=== PATIENT | female | born 1990 | race Caucasian/White ===

== ENCOUNTER 2017-10-01 15:40 | Emergency (ER) | payer SELFPAY ==
[2017-10-01] MEDS ORDERED: Cephalexin 500 MG Cap PO ONE (15:41)
[2017-10-01] MEDS ORDERED: cefTRIAXone 1 GM Vial IM ONE (16:16)
--- NOTE | 2017-10-01 16:16 | EDM.PDOC ---
ED HPI GENERAL MEDICAL PROBLEM - General Chief Complaint: Bite:Animal, Insect Stated Complaint: bug bite Time Seen by Provider: 10/01/17 16:08 Source of Information: Reports: Patient History Limitations: Reports: No Limitations Left Shoulder Pain Score (Numeric/FACES): 8 - Related Data Allergies Allergy/AdvReac Type Severity Reaction Status Date / Time No Known Allergies Allergy Verified 10/01/17 15:42 Home Meds: Home Meds . [No Known Home Meds] 10/01/17 [History] Past Medical History - Past Health History Medical/Surgical History: Denies Medical/Surgical History Social & Family History - Tobacco Use Smoking Status *Q: Current Some Day Smoker Years of Tobacco use: 2 Packs/Tins Daily: 0.2 ED ROS GENERAL - Review of Systems Review Of Systems: See Below Constitutional: Reports: Fever. Denies: Chills HEENT: Reports: No Symptoms Respiratory: Reports: No Symptoms Cardiovascular: Reports: No Symptoms Skin: Reports: Wound (left anterior shoulder ) ED EXAM, ANIMAL BITE - Physical Exam Exam: See Below Exam Limited By: No Limitations General Appearance: Alert, WD/WN, Mild Distress Head: Atraumatic, Normocephalic Neck: Normal Inspection, Supple, Non-Tender Respiratory/Chest: No Respiratory Distress, Lungs Clear Cardiovascular: Regular Rate, Rhythm Skin Exam: Normal Color, Warm/Dry, Other (has area on her anterior left shoulder that is 7 cm horizontal by 6 cm that is red, swollen, warm to touch and swollen. Does have area in the center that is coming to a head but no drainage noted from it. It is warm and tender to touch. Lymph nodes distally are enlarged and tender to palpation.) Course - Vital Signs Last Recorded V/S: Last Vital Signs Temp 96.7 F 10/01/17 15:42 Pulse 100 10/01/17 15:42 Resp 20 10/01/17 15:42 BP 135/80 10/01/17 15:42 Pulse Ox 99 10/01/17 15:42 - Orders/Labs/Meds Orders: Active Orders 24 hr Category Date Time Status CBC WITH AUTO DIFF [HEME] Stat Lab 10/01/17 15:54 Ordered - Re-Assessments/Exams Free Text/Narrative Re-Assessment/Exam: 10/01/17 16:16 In to discuss lab results with the pt Will give Rocephin at this time and then start on cephalexin. Pt is in agreement with the above. 10/01/17 16:23 Departure - Departure Time of Disposition: 16:20 Disposition: Home, Self-Care 01 Condition: Good Clinical Impression: Cellulitis Qualifiers: Site of cellulitis: extremity Site of cellulitis of extremity: upper extremity Laterality: left Qualified Code(s): L03.114 - Cellulitis of left upper limb - Discharge Information *PRESCRIPTION DRUG MONITORING PROGRAM REVIEWED*: Not Applicable *COPY OF PRESCRIPTION DRUG MONITORING REPORT IN PATIENT MILES: Not Applicable Instructions: Cellulitis, Adult Additional Instructions: Ice to area for swelling Cephalexin 500 mg twice a day. Take one tonight and then start twice a day after that. Tylenol or advil as needed for discomfort as needed Recheck in the clinic if not improving. - Problem List & Annotations (1) Cellulitis SNOMED Code(s): 277661632 Code(s): L03.90 - CELLULITIS, UNSPECIFIED Status: Acute Priority: High Qualifiers: Site of cellulitis: extremity Site of cellulitis of extremity: upper extremity Laterality: left Qualified Code(s): L03.114 - Cellulitis of left upper limb - Problem List Review Problem List Initiated/Reviewed/Updated: Yes - My Orders Last 24 Hours: My Active Orders 10/01/17 15:54 CBC WITH AUTO DIFF [HEME] Stat - Assessment/Plan Last 24 Hours: My Active Orders 10/01/17 15:54 CBC WITH AUTO DIFF [HEME] Stat Plan: follow up in the clinic if not improving.
[2017-10-01] MEDS ORDERED: Take Home: Cephalexin 500 MG Cap, 4 Cap Pack PO ONE (16:22)
[2017-10-01] MEDS ORDERED: Lidocaine 1% 20 ML MDV INJECT ONE (16:30)
== END 2017-10-01 17:05 | disposition home or self-care (01) ==
LOC: CC.ED 15:40
DX: L03.114 Cellulitis of left upper limb (principal); F17.210 Nicotine dependence, cigarettes, uncomplicated
CPT/HCPCS: 36415; 85025; 96372; 99283; A9270-GY; J0696

== ENCOUNTER 2021-02-21 13:13 | Emergency (ER) | payer MEDICAID ==
[2021-02-21] MEDS ORDERED: Sodium Chloride 0.9% 10 ML Syringe FLUSH PRN (13:31)
[2021-02-21] MEDS ORDERED: Sodium Chloride 0.9% 1,000 ML IV ONE (13:33)
[2021-02-21] MEDS ORDERED: Ondansetron 4 MG in Sodium Chloride 0.9% 50 ML IV STA (13:34)
[2021-02-21] MEDS ORDERED: Ondansetron 4 MG/2 ML SDV IVPUSH ONE (13:51)
[2021-02-21 14:07] LABS: CHLORIDE,CL 99 mEq/L (98-106); SODIUM,NA 134 mEq/L (136-145)
[2021-02-21 14:35] LABS: AMPHETAMINES,URINE POSITIVE (NEGATIVE); BARBITURATES,URINE NEGATIVE (NEGATIVE); BENZODIAZEPINE,URINE NEGATIVE (NEGATIVE); MDMA (ECSTASY), URINE NEGATIVE (NEGATIVE); METHADONE,URINE NEGATIVE (NEGATIVE); METHAMPHETAMINES,URINE POSITIVE (NEGATIVE); OPIATES,URINE NEGATIVE (NEGATIVE); OXYCODONE,URINE NEGATIVE (NEGATIVE); PHENCYCLIDINE,URINE NEGATIVE (NEGATIVE); TCA,URINE NEGATIVE (NEGATIVE)
[2021-02-21] MEDS ORDERED: Iopamidol 755 Mg/ML 100 ML Bottle IVPUSH ONE (14:54)
--- NOTE | 2021-02-21 15:00 | EDM.PDOC ---
ED HPI GENERAL MEDICAL PROBLEM - General Chief Complaint: Gastrointestinal Problem Stated Complaint: vomiting Time Seen by Provider: 02/21/21 13:20 Source of Information: Reports: Patient History Limitations: Reports: No Limitations - History of Present Illness INITIAL COMMENTS - FREE TEXT/NARRATIVE: This is a 30 year old female patient that presents with 2 day complaint of naus ea, vomiting, and abdominal pain. States that she has been vomiting every "couple of hours." States her pain is located throughout the abdomen but more so in the upper quadrants. Denies any abdominal surgeries. Denies drug or alcohol use. Stated her roommate smokes pot, but patient has not used in about 6 months. Denies concerns. Denies difficulty with urination and denies bleeding with bowel movements. Reports she has had some blood tinged emesis. Duration: Day(s): (2) Location: Reports: Abdomen Quality: Reports: Ache Severity: Moderate Improves with: Reports: None Worsens with: Reports: None Associated Symptoms: Reports: Nausea/Vomiting. Denies: Fever/Chills Right Upper Abdomen Pain Score (Numeric/FACES): 7 - Related Data Allergies Allergy/AdvReac Type Severity Reaction Status Date / Time No Known Allergies Allergy Verified 02/21/21 13:14 Home Meds: Home Meds Ciprofloxacin [Ciprofloxacin HCl] 500 mg PO BID #12 tab 02/21/21 [Rx] Ondansetron [Zofran ODT] 4 mg PO Q6H PRN #10 tab.dis 02/21/21 [Rx] Past Medical History - Past Health History Medical/Surgical History: Denies Medical/Surgical History Social & Family History - Tobacco Use Tobacco Use Status *Q: Current Every Day Tobacco User Tobacco Use Within Last Twelve Months: Cigarettes ED ROS GENERAL - Review of Systems Review Of Systems: See Below Constitutional: Reports: Decreased Appetite. Denies: Fever, Chills HEENT: Reports: No Symptoms Respiratory: Denies: Shortness of Breath, Wheezing, Cough Cardiovascular: Denies: Chest Pain, Dyspnea on Exertion Endocrine: Reports: No Symptoms GI/Abdominal: Reports: Abdominal Pain (generalized, more severe upper quadrants), Nausea, Vomiting. Denies: Constipation, Diarrhea : Denies: Discharge, Dysuria, Flank Pain, Frequency, Hematuria Musculoskeletal: Reports: No Symptoms Skin: Reports: No Symptoms Neurological: Reports: No Symptoms Psychiatric: Reports: No Symptoms Hematologic/Lymphatic: Reports: No Symptoms Immunologic: Reports: No Symptoms ED EXAM, GI/ABD - Physical Exam Exam: See Below Exam Limited By: No Limitations General Appearance: Alert, WD/WN, Mild Distress Ears: Normal External Exam, Hearing Grossly Normal Nose: Normal Inspection, No Blood Throat/Mouth: Normal Inspection, Normal Voice, No Airway Compromise Head: Atraumatic, Normocephalic Neck: Normal Inspection, Supple, Non-Tender Respiratory/Chest: No Respiratory Distress, Lungs Clear, Normal Breath Sounds, Chest Non-Tender. No: Crackles, Rales, Rhonchi, Wheezing Cardiovascular: Regular Rate, Rhythm, No Gallop, No Murmur, No Rub GI/Abdominal Exam: Normal Bowel Sounds, Soft, No Mass, Tender (tenderness with palpation to bilateral upper quadrants). No: Guarding (Female) Exam: Deferred Rectal (Female) Exam: Deferred Extremities: Normal Inspection, No Pedal Edema Neurological: Alert, Oriented, Normal Cognition Course - Vital Signs Last Recorded V/S: Last Vital Signs Temp 97.8 F 02/21/21 15:32 Pulse 71 02/21/21 15:32 Resp 16 02/21/21 15:32 BP 146/69 H 02/21/21 15:32 Pulse Ox 98 02/21/21 15:32 - Orders/Labs/Meds Orders: Active Orders 24 hr Category Date Time Status Abdomen Pelvis w Cont [CT] Stat Exams 02/21/21 14:20 Taken CULTURE URINE [RM] Stat Lab 02/21/21 14:25 Received Sodium Chloride 0.9% [Saline Flush] Med 02/21/21 13:31 Active 10 ml FLUSH ASDIRECTED PRN Saline Lock Insert [OM.PC] Routine Oth 02/21/21 13:31 Ordered Medication Orders Sodium Chloride (Sodium Chloride 0.9% 10 Ml Syringe) 10 ml FLUSH ASDIRECTED PRN PRN Reason: Keep Vein Open Labs: Laboratory Tests 02/21/21 02/21/21 02/21/21 Range/Units 13:50 13:50 14:23 WBC 14.1 H (4.0-11.0) 10^3/uL RBC 4.49 (4.00-5.50) x10^6/uL Hgb 13.3 (12.0-16.0) g/dL Hct 39.2 (37.0-47.0) % MCV 87.3 (83.0-97.0) fL MCH 29.6 (27.0-32.0) pg MCHC 33.9 (32.0-36.0) g/dL RDW Coeff of [place] 11.9 (11.0-15.0) % Plt Count 359 (150-400) 10^3/uL Immature Gran % (Auto) 0.2 (0.0-4.9) % Neut % (Auto) 76.2 H (41-71) % Lymph % (Auto) 16.1 L (24-44) % [place] % (Auto) 7.0 (0-10) % Eos % (Auto) 0.4 (0-6) % Baso % (Auto) 0.1 (0-1) % Neut # (Auto) 10.73 H (1.80-8.00) x10^3/uL Lymph # (Auto) 2.27 (0.60-5.00) 10^3/uL [place] # (Auto) 0.99 (0.00-1.50) 10^3/uL Eos # (Auto) 0.05 (0.00-1.50) 10^3/uL Baso # (Auto) 0.01 (0.00-0.50) 10^3/uL Immature Gran # (Auto) 0.03 (0.00-0.49) 10^3/uL Sodium 134 L (136-145) mEq/L Potassium 3.6 (3.5-5.0) mEq/L Chloride 99 (98-106) mEq/L Carbon Dioxide 28 (21-32) mmol/L BUN 14 (7-18) mg/dL Creatinine 0.8 (0.6-1.0) mg/dL Est Cr Clr Drug Dosing TNP Estimated GFR (MDRD) > 60 (>=60) mL/min Glucose 104 H (75-99) mg/dL Calcium 9.0 (8.4-10.1) mg/dL Total Bilirubin 0.9 (0.0-1.0) mg/dL AST 13 L (15-37) U/L ALT 18 (12-78) U/L Alkaline Phosphatase 46 (46-116) U/L C-Reactive Protein 2.5 H (0.2-0.8) mg/dL Total Protein 8.0 (6.4-8.2) g/dL Albumin 3.8 (3.4-5.0) g/dL Lipase 707 H (73-393) U/L Urine Color (YELLOW) Urine Appearance (CLEAR) Urine pH (4.5-8.0) Ur Specific [place] (1.003-1.020) Urine Protein (NEGATIVE) mg/dL Urine Glucose (UA) (NEGATIVE) mg/dL Urine Ketones (NEGATIVE) mg/dL Urine Occult Blood (NEGATIVE) Urine Nitrite (NEGATIVE) Urine Bilirubin (NEGATIVE) Urine Urobilinogen (0.2-1.0) EU/dL Ur Leukocyte Esterase (NEGATIVE) Urine RBC (0-5) /HPF Urine WBC (0-5) /HPF Ur Epithelial Cells (NOT SEEN) /HPF Urine Bacteria (NOT SEEN) /HPF Urine Mucus (NOT SEEN) /HPF Urine HCG, Qual Urine Opiates Screen Negative (NEGATIVE) Ur Oxycodone Screen Negative (NEGATIVE) Urine Methadone Screen Negative (NEGATIVE) Ur Barbiturates Screen Negative (NEGATIVE) U Tricyclic Antidepress Negative (NEGATIVE) Ur Phencyclidine Scrn Negative (NEGATIVE) Ur Amphetamine Screen Positive H (NEGATIVE) U Methamphetamines Scrn Positive H (NEGATIVE) Urine MDMA Screen Negative (NEGATIVE) U Benzodiazepines Scrn Negative (NEGATIVE) Urine Cocaine Screen Negative (NEGATIVE) U Marijuana (THC) Screen Positive H (NEGATIVE) 02/21/21 02/21/21 Range/Units 14:25 14:25 WBC (4.0-11.0) 10^3/uL RBC (4.00-5.50) x10^6/uL Hgb (12.0-16.0) g/dL Hct (37.0-47.0) % MCV (83.0-97.0) fL MCH (27.0-32.0) pg MCHC (32.0-36.0) g/dL RDW Coeff of [place] (11.0-15.0) % Plt Count (150-400) 10^3/uL Immature Gran % (Auto) (0.0-4.9) % Neut % (Auto) (41-71) % Lymph % (Auto) (24-44) % [place] % (Auto) (0-10) % Eos % (Auto) (0-6) % Baso % (Auto) (0-1) % Neut # (Auto) (1.80-8.00) x10^3/uL Lymph # (Auto) (0.60-5.00) 10^3/uL [place] # (Auto) (0.00-1.50) 10^3/uL Eos # (Auto) (0.00-1.50) 10^3/uL Baso # (Auto) (0.00-0.50) 10^3/uL Immature Gran # (Auto) (0.00-0.49) 10^3/uL Sodium (136-145) mEq/L Potassium (3.5-5.0) mEq/L Chloride (98-106) mEq/L Carbon Dioxide (21-32) mmol/L BUN (7-18) mg/dL Creatinine (0.6-1.0) mg/dL Est Cr Clr Drug Dosing Estimated GFR (MDRD) (>=60) mL/min Glucose (75-99) mg/dL Calcium (8.4-10.1) mg/dL Total Bilirubin (0.0-1.0) mg/dL AST (15-37) U/L ALT (12-78) U/L Alkaline Phosphatase (46-116) U/L C-Reactive Protein (0.2-0.8) mg/dL Total Protein (6.4-8.2) g/dL Albumin (3.4-5.0) g/dL Lipase (73-393) U/L Urine Color Yellow (YELLOW) Urine Appearance Clear (CLEAR) Urine pH 7.0 (4.5-8.0) Ur Specific [place] 1.025 H (1.003-1.020) Urine Protein 30 H (NEGATIVE) mg/dL Urine Glucose (UA) Negative (NEGATIVE) mg/dL Urine Ketones 15 H (NEGATIVE) mg/dL Urine Occult Blood Large H (NEGATIVE) Urine Nitrite Negative (NEGATIVE) Urine Bilirubin Negative (NEGATIVE) Urine Urobilinogen 0.2 (0.2-1.0) EU/dL Ur Leukocyte Esterase Moderate H (NEGATIVE) Urine RBC 20-30 H (0-5) /HPF Urine WBC 20-30 H (0-5) /HPF Ur Epithelial Cells Moderate H (NOT SEEN) /HPF Urine Bacteria Few H (NOT SEEN) /HPF Urine Mucus Many H (NOT SEEN) /HPF Urine HCG, Qual Negative Urine Opiates Screen (NEGATIVE) Ur Oxycodone Screen (NEGATIVE) Urine Methadone Screen (NEGATIVE) Ur Barbiturates Screen (NEGATIVE) U Tricyclic Antidepress (NEGATIVE) Ur Phencyclidine Scrn (NEGATIVE) Ur Amphetamine Screen (NEGATIVE) U Methamphetamines Scrn (NEGATIVE) Urine MDMA Screen (NEGATIVE) U Benzodiazepines Scrn (NEGATIVE) Urine Cocaine Screen (NEGATIVE) U Marijuana (THC) Screen (NEGATIVE) Meds: Medications Generic Name Dose Route Start Last Admin Trade Name Freq PRN Reason Stop Dose Admin Sodium Chloride 10 ml 02/21/21 13:31 Sodium Chloride 0.9% 10 Ml Syringe FLUSH ASDIRECTED PRN Keep Vein Open Discontinued Medications Generic Name Dose Route Start Last Admin Trade Name Freq PRN Reason Stop Dose Admin Ceftriaxone Sodium 1 gm 02/21/21 16:12 02/21/21 16:22 Ceftriaxone 1 Gm Vial IVPUSH 02/21/21 16:13 1 gm NOW STA Administration Ciprofloxacin 1 packet 02/21/21 16:18 02/21/21 16:31 Take Home: Ciprofloxacin 500 Mg Tab, 2 Tab Pack PO 02/21/21 16:19 1 packet ONETIME ONE Administration Sodium Chloride 1,000 mls @ 999 mls/hr 02/21/21 13:33 02/21/21 13:45 Normal Saline IV 02/21/21 14:33 999 mls/hr .BOLUS ONE Administration Ondansetron HCl 4 mg/ Sodium 52 mls @ 100 mls/hr 02/21/21 13:34 02/21/21 13:51 Chloride IV 02/21/21 14:05 Not Given NOW STA Iopamidol 100 ml 02/21/21 14:54 02/21/21 15:08 Iopamidol 755 Mg/Ml 100 Ml Bottle IVPUSH 02/21/21 14:55 100 ml ONETIME ONE Administration Ondansetron HCl 4 mg 02/21/21 13:51 02/21/21 13:52 Ondansetron 4 Mg/2 Ml Sdv IVPUSH 02/21/21 13:52 4 mg STAT ONE Administration Ondansetron HCl 4 mg 02/21/21 15:06 02/21/21 15:13 Ondansetron 4 Mg/2 Ml Sdv IVPUSH 12/11/21 15:07 4 mg NOW STA Administration Ondansetron HCl 3 packet 02/21/21 16:19 02/21/21 16:31 Take Home: Ondansetron 4 Mg Tab.Dis, 2 Tab Pack PO 02/21/21 16:20 3 packet ONETIME ONE Administration - Re-Assessments/Exams Free Text/Narrative Re-Assessment/Exam: This is a 30 year old female that presented to the ED with abdominal pain and persistent nausea and vomiting for the past couple days. CBC, CMP, CRP, Lipase, UA, urine , and UDS obtained. WBC elevate at 14.1, CRP 2.5, Lipase 707, UA positive for leukocyte esterase, large blood, and mucus, AST and ALT within normal limits. UDS positive for amphetamines, methamphetamines, and marijuana. A CT abdomen pelvis with contrast was completed and radiologist reported there may be evidence of periportal edema of the liver and likely will need further evaluation for hepatitis. The pancreas showed no evidence of pancreatitis. Kidneys had evidence of possible pyelonephritis. Plan to treat UTI with possible pyelonephritis. 1 gram Rocephin administered IVP in the ED. A prescription for ciprofloxacin 500 mg po BID was placed and will send home take home packet to start tomorrow. Will send take home packet of Zofran ODT and prescription placed to local pharmacy. Discussed all findings with patient including results of the UDS. Patient denies methamphetamine use. Instructed to avoid any illicit drug use. Education verbalized the risk of hyperemesis and marijuana use. She should follow-up with her PCP for further evaluation of incidental liver findings on CT. Encouraged to drink plenty of fluids. If her symptoms persist or worsen she was advised that she may call or return to the ED for further evaluation. Departure - Departure Time of Disposition: 16:26 Disposition: DC/Tfer W/I Hosp To Swing 61 Condition: Fair Clinical Impression: UTI (urinary tract infection) Qualifiers: Urinary tract infection type: acute pyelonephritis Qualified Code(s): N10 - Acute pyelonephritis Vomiting Qualifiers: Vomiting type: unspecified Nausea presence: with nausea Qualified Code(s): R11.2 - Nausea with vomiting, unspecified - Discharge Information *PRESCRIPTION DRUG MONITORING PROGRAM REVIEWED*: Not Applicable *COPY OF PRESCRIPTION DRUG MONITORING REPORT IN PATIENT MILES: Not Applicable Prescriptions: Ciprofloxacin [Ciprofloxacin HCl] 500 mg PO BID #12 tab Ondansetron [Zofran ODT] 4 mg PO Q6H PRN #10 tab.dis PRN Reason: Nausea/Vomiting Referrals: PCP,None [Primary Care Provider] - Forms: ED Department Discharge Additional Instructions: 1. Given Rocephin (antibiotic) in the ER today for UTI. 2. Take Ciprofloxacin by mouth 2 times per day starting tomorrow morning, and fill remainder of prescription at the pharmacy. 3. May take ondansetron ODT (Zofran) for nausea every 6 hours as needed. 4. Avoid any illicit drug use or ingestion. 5. Stay hydrated by drinking plenty of fluids. If nauseated take sips and do not gulp as gulping can increase risk of vomiting. 6. Follow-up with your primary care provider for possible testing of incidental liver findings on CT scan. 7. Call or return if questions or symptoms are worsening. Sepsis Event Note (ED) - Evaluation Sepsis Screening Result: No Definite Risk - Focused Exam Vital Signs: Vital Signs Temp Pulse Resp BP BP Pulse Ox 02/21/21 15:32 97.8 F 71 16 146/69 H 98 02/21/21 13:15 96.1 F L 85 16 103/53 L 97 - My Orders Last 24 Hours: My Active Orders 02/21/21 13:31 Sodium Chloride 0.9% [Saline Flush] 10 ml FLUSH ASDIRECTED PRN Saline Lock Insert [OM.PC] Routine 02/21/21 14:25 CULTURE URINE [RM] Stat - Assessment/Plan Last 24 Hours: My Active Orders 02/21/21 13:31 Sodium Chloride 0.9% [Saline Flush] 10 ml FLUSH ASDIRECTED PRN Saline Lock Insert [OM.PC] Routine 02/21/21 14:25 CULTURE URINE [RM] Stat
[2021-02-21] MEDS ORDERED: Ondansetron 4 MG/2 ML SDV IVPUSH STA (15:06)
[2021-02-21] MEDS ORDERED: cefTRIAXone 1 GM Vial IVPUSH STA (16:12)
[2021-02-21] MEDS ORDERED: Take Home: Ciprofloxacin 500 MG Tab, 2 Tab Pack PO ONE (16:18)
[2021-02-21] MEDS ORDERED: Take Home: Ondansetron 4 MG Tab.DIS, 2 Tab Pack PO ONE (16:19)
== END 2021-02-21 16:40 | disposition home or self-care (01) ==
LOC: CC.ED 13:13
DX: N10 Acute pyelonephritis (principal); F17.210 Nicotine dependence, cigarettes, uncomplicated
CPT/HCPCS: 36415; 74177; 80053; 80305-QW; 81001; 81025; 83690; 85025; 86140; 87086; 96374; 96375; 96376; 99284; 99284-25; A9270-GY; J0696; J2405; J7030; Q9967